=== PATIENT | female | born 1980 | race African-American/Black ===

== ENCOUNTER 2022-09-20 15:33 | Emergency (ER) | payer OTHER ==
[~2022-09-20] VITALS: Ht 157.5 cm; Wt 68.9 kg
[2022-09-20 15:40] VITALS: BP 127/57; TEMP 98.3
[2022-09-20 16:37] LABS: PLATELET COUNT 235 K/uL (152-353)
[2022-09-20 16:48] LABS: POTASSIUM 3.4 mmol/L (3.6-5.2); SODIUM 138 mmol/L (136-145)
[2022-09-20 16:52] LABS: PARTIAL THROMBOPLASTIN TIME 22.5 SECONDS (24.5-33.6)
== END 2022-09-20 19:28 | disposition home or self-care (01) ==
LOC: ED 15:33
PROVIDERS: Emergency Medicine
DX: R10.13 Epigastric pain (principal)
CPT/HCPCS: 80053; 81002; 81025; 83690; 84443; 84484; 85027; 85379; 85610; 85730; 93005; 96374; 96375; 99284; J2270; J2405; J3490; Q9963